=== PATIENT | female | born 1990 | race African-American/Black ===

== ENCOUNTER 2019-05-06 17:29 | Emergency (ER) | payer OTHER, SELFPAY ==
--- NOTE | ~2019-05-06 | XR_ITS ---
EXAMINATION: XR chest 2V EXAM DATE: 05/06/2019 18:15 INDICATION: Cough for 6 weeks. Wheezing. TECHNIQUE: Frontal and lateral projections of the chest obtained and reviewed. There is no prior sobeida dy for comparison. FINDINGS: The lungs are clear. There are no pleural effusions. The cardiomediastinal silhouette is within normal limits. There is no pneumothorax suspected. The bones and soft tissues are unremarkab le. IMPRESSION: Unremarkable chest x-ray exam. Reviewed, dictated and finalized at location A.
--- NOTE | 2019-05-06 17:52 | ED.GENADULT ---
HPI - General Adult General Chief complaint: Upper Respiratory Infection Stated complaint: Vomiting/Cough/bodyaches/headache Time Seen by Provider: 05/06/19 17:52 Source: patient Mode of arrival: ambulatory Limitations: no limitations History of Present Illness HPI narrative: 28-year-old female patient presents to the [facility] with complaints of cold symptoms for the past month and a half. Patient states that she has had body aches, chills, coughing. Patient states that she does have shortness of breath with coughing at times. Patient denies any fevers that she is aware of but states she has not been checking her temperature. Denies any ear pain, runny nose or stuffy nose. Denies any sore throat. Patient denies any abdominal pain but states that she did start throwing up today. Patient states that she has been taking [id number] NyQuil for her symptoms as well as Delsym cough syrup. Patient states currently her sister does have influenza, her mother has pneumonia and her grandmother has bronchitis and they all live in the same household. Patient denies or breast-feeding at this time. Related Data Home Medications Medication Instructions Recorded Confirmed lisinopril 05/06/19 metformin 05/06/19 norethindrone (contraceptive) mg 05/06/19 Allergies Allergy/AdvReac Type Severity Reaction Status Date / Time nickel AdvReac Mild TURNS SKIN Verified 03/05/18 13:13 BLACK Review of Systems Review of Systems: Narrative: CONSTITUTIONAL: Denies fever, chills, or sweats. EYES: Denies visual changes, redness, or discharge. ENT: Denies rhinorrhea, congestion, sore throat, or otalgia. CARDIOVASCULAR: Denies chest pain, palpitations, or edema. RESPIRATORY: Positive cough with dyspnea. GASTROINTESTINAL: Denies abdominal pain, nausea, positive vomiting, denies diarrhea. GENITOURINARY: Denies dysuria or hematuria. SKIN: Denies rash or itching. MUSCULOSKELETAL: Denies back pain, joint pain, or myalgia. NEUROLOGIC: Denies headache, numbness, or weakness. PSYCHIATRIC: Denies anxiety or depression. PMFSH Comments At the time of my signature I agree with nursing past medical history, surgical, social, and family history. There is no relevant family history pertinent to the presenting complaint. Exam Narrative: Exam Narrative: GENERAL: Well-appearing, well-nourished, and in no acute distress. HEAD: Normocephalic, atraumatic. No tenderness noted to frontal and maxillary sinuses on palpation EYES: PERRLA and EOMI. ENT: Nares with erythema and edema noted bilaterally, no rhinorrhea or epistaxis. Mucous membranes moist. Posterior pharynx with no erythema, tonsil enlargement, exudates or lesions present. Bilateral TMs are clear no erythema or foreign bodies in the canal. NECK: Supple. No lymphadenopathy CHEST: Expiratory wheezing noted bilateral lower lobes. Slight labored breathing noted during exam however patient is able to talk in clear complete sentences. No tripoding noted. Cough noted during exam. HEART: Regular rate and rhythm. No murmur heard. Normal peripheral pulses. ABDOMEN: Soft, nontender, nondistended, normal active bowel sounds. EXTREMITIES: Normal range of motion. No edema. SKIN: Warm, dry, no rash. NEURO: No focal deficits. Alert and oriented x3. Course Reevaluation(s) Reevaluation #1: Reevaluated patient after her DuoNeb was completed. Patient states that she does feel like she can breathe a little bit easier. Patient states that her coughing has improved. Discussed with patient that her lungs are a lot clearer than before. Discussed with patient most likely this is bronchitis and inflammation left over from the virus that she has had. Discussed with patient I am going to discharge her home with an albuterol inhaler, oral steroid, daily antihistamine and nasal steroid for symptoms. Discussed with patient that if she continues to have worsening symptoms she would need to follow-up with her primary
[2019-05-06 17:58] VITALS: BP 158/103; PULSE 93; RESP 16; TEMP 37.3; O2SAT 97
[2019-05-06] MEDS: ALBUTEROL SULFATE NEB 2.5 MG/3 ML INH INHALATION (18:16)
[2019-05-06] MEDS: IPRATROPIUM BR 0.02% INH SOLN 0.5 MG/2.5 ML VIAL INHALATION (18:16)
== END 2019-05-06 18:48 | disposition home or self-care (01) ==
PROVIDERS: Emergency Provider Nurse Practitioner Family; PCP Family Medicine
DX: J02.8 Acute pharyngitis due to other specified organisms (principal); I10 Essential (primary) hypertension
CPT/HCPCS: 71046; 87804; 94640; 99213; G0463

== ENCOUNTER 2021-07-31 09:16 | Emergency (ER) | payer OTHER, SELFPAY ==
[2021-07-31 09:51] VITALS: BP 149/97; PULSE 77; RESP 16; TEMP 37.2; O2SAT 98
--- NOTE | 2021-07-31 10:31 | ED.URI ---
HPI - URI/Sore Throat General Chief Complaint: Upper Respiratory Infection Stated Complaint: uri Time Seen by Provider: 07/31/21 10:32 Source: patient Mode of arrival: ambulatory Limitations: no limitations History of Present Illness HPI Narrative: 30-year-old female presents with complaint of sinus congestion, nasal drainage, runny nose, postnasal drainage, intermittent sore throat, dry cough for 2 to 3 weeks. Reports I have tried everything . States that she has tried Coricidin, Claritin, nasal sprays, TheraFlu with no relief. Afebrile. Was sent home from work today due to congestion. Reports that she has taken at home COVID test that were negative. No chest pain or shortness of breath. No nausea vomiting diarrhea. All systems reviewed and negative except as noted above. Related Data Home Medications Medication Instructions Recorded Confirmed metformin 05/06/19 norethindrone (contraceptive) 0.35 mg 05/06/19 mg tablet aspirin 81 mg tablet,delayed tablet 07/31/21 release atorvastatin 10 mg tablet tablet 07/31/21 lisinopril 20 tablet 07/31/21 mg-hydrochlorothiazide 12.5 mg tablet Allergies Allergy/AdvReac Type Severity Reaction Status Date / Time nickel AdvReac Mild TURNS SKIN Verified 03/05/18 13:13 BLACK Review of Systems Review of Systems: CONSTITUTIONAL: Denies fever, chills, or sweats. EYES: Denies visual changes, redness, or discharge. ENT: Reports rhinorrhea, congestion, sore throat. Denies otalgia. CARDIOVASCULAR: Denies chest pain, palpitations, or edema. RESPIRATORY: Reports cough. Denies dyspnea. GASTROINTESTINAL: Denies abdominal pain, nausea, vomiting, or diarrhea. GENITOURINARY: Denies dysuria or hematuria. SKIN: Denies rash or itching. MUSCULOSKELETAL: Denies back pain, joint pain, or myalgia. NEUROLOGIC: Denies headache, numbness, or weakness. PSYCHIATRIC: Denies anxiety or depression. All other systems reviewed are negative, except as documented in HPI. PMFSH Comments At time of signature, agree with nursing past medical, surgical, social and family history. There is no relevant family history pertinent to the presenting complaint. Exam Narrative: GENERAL: This is a well-nourished, well-developed patient, in no apparent distress. HEAD: normocephalic, atraumatic. EYES: PERRL. Sclera clear/white. Vision is grossly intact. EARS: External ears normal, auditory canals clear and without drainage, fluid and erythema, slightly bulging to bilateral TMs. No perforation. NOSE: External nose normal with clear nasal drainage from nose, erythema and swelling to both nares. Maxillary sinus tenderness bilaterally. THROAT: Mucous membranes moist, erythema to posterior pharynx with postnasal drainage. NECK: Neck supple, non-tender without lymphadenopathy, masses or thyromegaly. CARDIOVASCULAR: Regular rate and rhythm without murmurs, gallops, or rubs. RESPIRATORY: Clear to auscultation. Breath sounds equal bilaterally. No wheezes, rales, or rhonchi. SKIN: warm, Dry, intact with no suspicious lesions or rash, good texture and turgor. NEURO: awake, alert, and oriented to person, place and time. There were no obvious focal neurologic abnormalities. EXTREMITIES: Normal range of motion to all extremities. Course Course Level of Care: Express Care Visit Vital Signs Vital signs: Vital Signs Temperature 37.2 C 07/31/21 09:51 Pulse Rate 77 07/31/21 09:51 Respiratory Rate 16 07/31/21 09:51 Blood Pressure 149/97 H 07/31/21 09:51 Pulse Oximetry 98 07/31/21 09:51 Oxygen Delivery Room Air 07/31/21 09:51 Temperature 37.2 C 07/31/21 09:51 Pulse Rate 77 07/31/21 09:51 Respiratory Rate 16 07/31/21 09:51 Blood Pressure 149/97 H 07/31/21 09:51 Pulse Oximetry 98 07/31/21 09:51 Oxygen Delivery Room Air 07/31/21 09:51 Reviewed MDM - URI/Sore Throat MDM Narrative Medical decision making narrative: Patient is aware of diagnosis, understands and
== END 2021-07-31 10:58 | disposition home or self-care (01) ==
PROVIDERS: Emergency Provider Nurse Practitioner Family
DX: J01.90 Acute sinusitis, unspecified (principal); E78.00 Pure hypercholesterolemia, unspecified; I10 Essential (primary) hypertension; Z86.16 Personal history of COVID-19
CPT/HCPCS: 99213; G0463